=== PATIENT | female | born 1995 | race Caucasian/White ===

== ENCOUNTER → 2017-04-27 | Outpatient (CLI) | payer OTHER ==
[~2017-04-27] MED LIST: EPP3/2 IM; GADAVIST IV PRN
--- NOTE | 2017-04-27 15:27 | ECHOCARDIOGRAM REPORT ---
*NOTICE TO RECEIVING [employer] This information is strictly Confidential and protected under [place] law. [place] law prohibits you from making any further disclosure of this information unless further disclosure is expressly permitted by the written consent of the person to whom it pertains or is authorized by law. A general authorization for the release of medical or other information is not sufficient for this purpose. Hospital accepts no responsibility if the information is made available to any other person, INCLUDING THE PATIENT. Interpretation Summary * Name: EBENEZER THORNTON Study Date: 04/27/2017 01:47 PM BP: 145/78 mmHg * Patient Location: [facility] HR: 77 * : 1995 (M/d/yyyy) Gender: Female Height: 63 in * Age: 21 yrs Ethnicity: CA Weight: 124 lb * Ordering Physician: Merissa Yo * Referring Physician: Merissa Yo MEthan PArabella * Performed By: Rebecca Moreira RDCS * * Reason For Study: LIGHTHEADEDNESS, DIZZY, SYCOPE * BSA: 1.6 m2 * -- Conclusions -- * Left ventricular systolic function is normal. * No regional wall motion abnormalities noted. * Ejection Fraction = 55-60%. * There is mild mitral regurgitation. Procedure Details * Normal transthoracic echocardiogram. Left Ventricle * The left ventricle is normal in size. * There is normal left ventricular wall thickness. * Ejection Fraction = 55-60%. * Left ventricular systolic function is normal. * No regional wall motion abnormalities noted. Right Ventricle * The right ventricle is normal size. * The right ventricular systolic function is normal as assessed by tricuspid annular plane systolic excursion (TAPSE) (normal >1.5 cm). Atria * The left atrial size is normal. * Right atrial size is normal. * No ASD detected; PFO is not assessed. Mitral Valve * The mitral valve is normal in structure and function. * There is no mitral valve stenosis. * There is mild mitral regurgitation. Tricuspid Valve * The tricuspid valve is normal in structure and function. * There is no tricuspid stenosis. * No tricuspid regurgitation. Aortic Valve * The aortic valve is normal in structure and function. * No hemodynamically significant valvular aortic stenosis. * No aortic regurgitation is present. Pulmonic Valve * The pulmonary valve is not well seen, but the Doppler examination is normal without significant regurgitation or stenosis. Great Vessels * The aortic root is normal size. * The pulmonary artery is not well visualized, but is probably normal size. Pericardium/Pleural * There is no pericardial effusion. Great Vessels * Normal inferior vena cava size and collapsability with sniff indicates a normal right atrial pressure of 3 mmHg MMode 2D Measurements and Calculations IVSd 0.66 cm IVSs 1.0 cm LVIDd 4.6 cm LVIDs 3.3 cm LVPWd 0.87 cm LVPWs 1.5 cm IVS/LVPW 0.76 FS 29.8 % EDV(Teich) 99.7 ml ESV(Teich) 43.0 ml EF(Teich) 56.9 % EDV(cubed) 100.4 ml ESV(cubed) 34.8 ml EF(cubed) 65.4 % % IVS thick 53.7 % % LVPW thick 70.7 % LV mass(C)d 113.0 grams LV mass(C)dI 71.6 grams/m\S\2 LV mass(C)s 130.7 grams LV mass(C)sI 82.8 grams/m\S\2 SV(Teich) 56.7 ml SI(Teich) 35.9 ml/m\S\2 SV(cubed) 65.6 ml SI(cubed) 41.6 ml/m\S\2 Ao root diam 2.6 cm Ao root area 5.2 cm\S\2 LA dimension 2.8 cm LA/Ao 1.1 LVAd ap4 27.5 cm\S\2 LVLd ap4 8.9 cm EDV(MOD-sp4) 72.6 ml LVAs ap4 17.0 cm\S\2 LVLs ap4 7.3 cm ESV(MOD-sp4) 34.5 ml EF(MOD-sp4) 52.5 % LVAd ap2 30.6 cm\S\2 LVLd ap2 9.4 cm EDV(MOD-sp2) 86.4 ml LVAs ap2 16.4 cm\S\2 LVLs ap2 7.9 cm ESV(MOD-sp2) 31.3 ml EF(MOD-sp2) 63.8 % SV(MOD-sp4) 38.1 ml SI(MOD-sp4) 24.1 ml/m\S\2 SV(MOD-sp2) 55.1 ml SI(MOD-sp2) 34.9 ml/m\S\2 Doppler Measurements and Calculations MV E max charline 62.6 cm/sec MV A max charline 51.9 cm/sec MV E/A 1.2 MV dec time 0.27 sec Ao V2 max 115.5 cm/sec Ao max PG 5.3 mmHg Ao max PG (full) 2.3 mmHg LV V1 max PG 3.0 mmHg LV V1 max 86.8 cm/sec TR max charline 163.3 cm/sec
--- NOTE | 2017-04-27 15:30 | DIAGNOSTIC IMAGING REPORT ---
MRI OF THE BRAIN WITHOUT AND WITH IV CONTRAST CLINICAL HISTORY: LIGHTHEADEDNESS, SYNCOPE, INTERMITTENT DIZZINESS COMPARISON STUDY: No previous studies for comparison. TECHNIQUE: MRI of the brain was performed from the vertex to the skull base utilizing various T1 and T2 weighted sequences. Following the IV administration of 5.5 mL of Gadavist contrast, additional enhanced images were obtained. FINDINGS: Sagittal T1, axial diffusion, proton density and T2 weighted axial, coronal FLAIR, and pre and post axial T1-weighted images were acquired. These were supplemented with post gadolinium coronal T1 weighted images. No intra or extra-axial mass lesions are visualized. Axial diffusion-weighted images reveal no evidence of acute or subacute infarction. There is no evidence of ventricular dilatation. Proton density T2-weighted and FLAIR images reveal no significant intraparenchymal signal abnormalities. There are no abnormal flow voids. There is no evidence of pathologic enhancement. There are foci of increased T2 signal within the mastoids likely inflammatory. There is mild mucosal thickening within the right maxillary sinus. IMPRESSION: Mild inflammatory changes in the sinuses. Otherwise normal MRI of the brain. Electronically signed by: Steve Duque M.D. 04/27/2017 3:29 PM Dictated Date/Time: 04/27/2017 3:26 PM
== END | disposition home or self-care (01) ==
LOC: C.CPL 13:42
PROVIDERS: ATTEND Physician Assistant
DX: R25.1 Tremor, unspecified (principal); R55 Syncope and collapse; J32.9 Chronic sinusitis, unspecified

== ENCOUNTER → 2017-06-09 | Outpatient (CLI) | payer OTHER ==
[~2017-06-09] MED LIST changes: -GADAVIST IV PRN
--- NOTE | 2017-06-09 17:11 | EEG Procedure Note ---
EEG Procedure Note Date of Service Jun 09, 2017. Start / End Times Start Time: 9:19 a.m. End Time: 9:39 AM Referring Physician MARIUM Maciel History This is a 21-year-old female with a syncopal event. EEG for further evaluation of possible seizure etiology Home Medication List Scheduled Epinephrine (Epipen), 0.3 MG IM UD Description This is a 21 electrode EEG with a single channel dedicated to limited EKG. The electrodes were placed in accordance with the International 10-20 system. At the start of the recording the patient was in an awake state. Background was well organized and composed of symmetric mixed alpha and beta frequencies. There was a symmetric well-formed moderate amplitude 10-11 Hz posterior dominant rhythm that was reactive to eye opening and closure. Hyperventilation was not done. Intermittent photic stimulation at various frequencies produced no abnormalities. Sleep was indicated by vertex waves and symmetric sleep spindles Interpretation This is a normal awake and asleep routine EEG. There was no electrographic seizures or epileptiform discharges. Clinical Correlation A normal EEG does not rule out epilepsy if there is a strong clinical suspicion.
== END | disposition home or self-care (01) ==
LOC: C.NEUR 09:03
PROVIDERS: ATTEND Physician Assistant
DX: R55 Syncope and collapse (principal)